=== PATIENT | male | born 1960 | race Caucasian/White ===

== ENCOUNTER 2017-01-01 13:45 | Emergency (ER) | payer OTHER ==
[2017-01-01 13:50] VITALS: BP 164/104; PULSE 97; TEMP 98.2; BMI 33.5
[2017-01-01] MEDS ORDERED: KETOROLAC TROMETHAMINE 60 MG/2 ML VIAL IM ONE (14:16)
--- NOTE | 2017-01-01 14:18 | PDOC ---
History of Present Illness - General Chief Complaint: Pain Stated Complaint: LEFT KNEE INJURY ON THE JOB Time Seen by Provider: 01/01/17 13:57 History Source: Patient Exam Limitations: No Limitations - History of Present Illness Initial Comments: 01/01/17 14:20 While on duty, works for [employer], stepped in a pot hole causing and lateral twisting movement injuring his left knee. States used ice packs, and elevated, but states has continued swelling and lateral pain to his left knee joint. No numbness or tingling to foot, no ankle injury no hip injury. Occurred: reports: yesterday Severity: reports: mild Pain Location: reports: lower extremity (left knee) Method of Injury: Yes: fall Associated Symptoms (Fall): denies symptoms Past History - Travel Traveled outside of the country in the last 30 days: No Close contact w/someone who was outside of country & ill: No - Past Medical History Allergies/Adverse Reactions: Allergies Allergy/AdvReac Type Severity Reaction Status Date / Time simvastatin Allergy Rash Verified 01/01/17 13:51 Home Medications: Ambulatory Orders Allopurinol [Zyloprim -] 100 mg PO DAILY 01/01/17 Diclofenac Sodium [Voltaren] 100 gm TP BID PRN #1 gel..gram. 01/01/17 Lisinopril/Hydrochlorothiazide [Lisinopril-Hctz 10-12.5 mg Tab] 1 each PO ASDIR 01/01/17 Sitagliptin Phos/Metformin HCl [Janumet 50-1,000 mg Tablet] 50 mg PO ASDIR 01/01 Diabetes: Yes HTN: Yes Other medical history: GOUT - Surgical History Abdominal Surgery: Yes (HERNIA) - Psycho/Social/Smoking Cessation Hx Anxiety: No Suicidal Ideation: No Smoking History: Never smoked Hx Alcohol Use: No Drug/Substance Use Hx: No Substance Use Type: None Review of Systems - Review of Systems Able to Perform ROS?: Yes Is the patient limited Trinidadian proficient: Yes Constitutional: Yes: See HPI. No: Symptoms Reported, Fever, Malaise HEENTM: No: Symptoms Reported Musculoskeletal: Yes: Symptoms Reported, See HPI, Joint Swelling, Joint Stiffness (left knee ) All Other Systems: Reviewed and Negative *Physical Exam - Vital Signs Last Vital Signs Temp Pulse Resp BP Pulse Ox 98.2 F 97 H 20 164/104 97 01/01/17 13:47 07/05/17 13:47 01/01/17 13:47 01/01/17 13:47 01/01/17 13:47 - Physical Exam General Appearance: Yes: Nourished, Appropriately Dressed, Apparent Distress, Mild Distress HEENT: positive: JANA, Normal ENT Inspection, TMs Normal, Pharynx Normal Respiratory/Chest: positive: Lungs Clear Gastrointestinal/Abdominal: positive: Normal Bowel Sounds Extremity: positive: Normal Capillary Refill, Normal Inspection, Tender ( tenderness reproduced along the lateral aspect of his left knee, primarily superior insertion site. Has no crepitus or step-offs, patella is mobile, has some mild posterior possible tenderness. Range of motion is intact but painful on severe flexion. Ambulatory without noted unsteadiness but mild limp. Neurovascular intact to foot). negative: Normal Range of Motion Integumentary: positive: Normal Color, Warm, Swelling Neurologic: positive: cost clerk II-XII NML intact, Fully Oriented, Alert, Normal Mood/ Affect, Normal Response, Motor Strength 5/5 Progress Note - Progress Note Progress Note: Left knee sprain, probable LCL ligament injury. We will obtains on knee immobilizer that is more appropriate fit, will treat with NSAIDs, and prescribed DEfenolac cream. and F/U with Dr Hayden *DC/Admit/Observation/Transfer Diagnosis at time of Disposition: Knee LCL sprain Qualifiers: Encounter type: initial encounter Laterality: left Qualified Code(s): S83.422A - Sprain of lateral collateral ligament of left knee, initial encounter - Discharge Dispostion Disposition: HOME Condition at time of disposition: Stable Admit: No - Prescriptions Prescriptions: Diclofenac Sodium [Voltaren] 100 gm TP BID PRN #1 gel..gram. PRN Reason: Pain - Referrals Referrals: Uzair Hayden MD [Staff Physician] - - Patient Instructions Printed Discharge Instructions: DI for Knee Sprain Additional Instructions: Rest, ice to area on and off for 15 minutes 4-6 times a day Avoid heavy lifting or exercise until pain and swelling is resolved or until further directed Keep area highly elevated to reduce swelling Use splints/Kareem wrap as directed Followup with orthopedist in one to 2 days if not improving, if significantly improved may wait one week for followup with orthopedist May use Voltaren cream twice a day on affected area for pain relief May use ibuprofen 2-200 mg tablets every 6 hours as needed for pain - Post Discharge Activity Work/School Note: Back to Work
[2017-01-01] MEDS ORDERED: KETOROLAC TROMETHAMINE 60 MG/2 ML VIAL ONE (14:19)
== END 2017-01-01 14:30 | disposition home or self-care (01) ==
LOC: JERFT 13:45
PROC: 3E0233Z Introduction of Anti-inflammatory into Muscle, Percutaneous Approach (ICD-10-PCS; principal; 2017-01-01)
PROC: 2W3TX1Z Immobilization of Left Foot using Splint (ICD-10-PCS; 2017-01-01)
DX: S83.422A Sprain of lateral collateral ligament of left knee, initial encounter (principal); X58.XXXA Exposure to other specified factors, initial encounter; Y93.89 Activity, other specified; Y92.410 Unspecified street and highway as the place of occurrence of the external cause; Y99.0 Civilian activity done for income or pay; E11.9 Type 2 diabetes mellitus without complications; I10 Essential (primary) hypertension; M10.9 Gout, unspecified
CPT/HCPCS: 99281-25

== ENCOUNTER 2019-03-10 16:36 | Emergency (ER) | payer OTHER ==
[2019-03-10 16:49] VITALS: BP 125/75; PULSE 90; TEMP 98.3; BMI 31.0
--- NOTE | 2019-03-10 16:53 | PDOC ---
History of Present Illness - General Stated Complaint: BUG BITE Time Seen by Provider: 03/10/19 16:45 History Source: Patient Exam Limitations: No Limitations Past History - Travel Traveled outside of the country in the last 30 days: No Close contact w/someone who was outside of country & ill: No - Past Medical History Allergies/Adverse Reactions: Allergies Allergy/AdvReac Type Severity Reaction Status Date / Time simvastatin Allergy Rash Verified 03/10/19 16:45 Home Medications: Ambulatory Orders Allopurinol [Zyloprim -] 100 mg PO DAILY 01/01/17 Diclofenac Sodium [Voltaren] 100 gm TP BID PRN #1 gel..gram. 01/01/17 Lisinopril/Hydrochlorothiazide [Lisinopril-Hctz 10-12.5 mg Tab] 1 each PO ASDIR 01/01/17 Sitagliptin Phos/Metformin HCl [Janumet 50-1,000 mg Tablet] 50 mg PO ASDIR 01/01 Cephalexin Monohydrate [Keflex -] 500 mg PO BID #14 capsule 03/10/19 Sulfamethoxazole/Trimethoprim [Bactrim Ds -] 1 tab PO BID #14 tablet 03/10/19 Diabetes: Yes HTN: Yes - Surgical History Abdominal Surgery: Yes (HERNIA) - Suicide/Smoking/Psychosocial Hx Smoking History: Never smoked Hx Alcohol Use: No Drug/Substance Use Hx: No Substance Use Type: None Review of Systems - Review of Systems Able to Perform ROS?: Yes Is the patient limited Kinyarwanda proficient: No Constitutional: No: Chills, Fever, Weakness Musculoskeletal: No: Muscle Pain, Muscle Weakness Integumentary: Yes: Erythema, Rash. No: Lesions Neurological: No: Paresthesia, Tingling, Weakness All Other Systems: Reviewed and Negative *Physical Exam - Physical Exam General Appearance: Yes: Nourished, Appropriately Dressed. No: Apparent Distress Extremity: positive: Normal Capillary Refill, Normal Range of Motion Integumentary: positive: Dry, Warm, Rash (cellulitis to the L ventral forearm approximately 5cmx4.5cm no fluctance or abscess noted) Neurologic: positive: Fully Oriented, Alert, Normal Mood/Affect, Normal Response , Motor Strength 5/5 Medical Decision Making - Medical Decision Making 03/10/19 16:49 The pt is a 58 y/o M with PMH of NIDDM, HLD, gout presents to the ER with cellulitis to his L forearm starting this morning. The patient states he got bit by a bug yesterday. When he woke up this morning he saw redness on the forearm and throughout the course of the day the rash got worse. 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 Denies fevers, chills, numbess, tingling and weakness in the affected extremity. A/P: cellulitis On exam pt with a warm patch 4.5x5cm on the ventral L forearm consistent with cellulitis Will place pt on Keflex and bactrim given diabetic and work history Area was marked with a pen Strict return precautions given at this time, should the rash go past the marked area that he should return to the ER for further evaluation Pt understands all dc instructions and all questions were answered. *DC/Admit/Observation/Transfer Diagnosis at time of Disposition: Cellulitis Qualifiers: Site of cellulitis: extremity Site of cellulitis of extremity: upper extremity Laterality: left Qualified Code(s): L03.114 - Cellulitis of left upper limb - Discharge Dispostion Disposition: HOME Condition at time of disposition: Stable Decision to Admit order: No - Referrals Referrals: Juan M Hamilton MD [Staff Physician] - - Patient Instructions Printed Discharge Instructions: DI for Cellulitis -- Adult Additional Instructions: You have cellulitis or a skin infection Take the bactrim and keflex as prescribed starting tonight for one week. Finish the entire dose even if you feel better Use warm soaks to the area Do not shave around the area. Return to the ER if the redness gets worse/extends past the marked area, if you develop fevers or pain in the arm or if you have any changes in your symptoms - Post Discharge Activity Forms/Work/School Notes: Back to Work
== END 2019-03-10 17:10 | disposition home or self-care (01) ==
LOC: JER 16:36
DX: L03.114 Cellulitis of left upper limb (principal); E78.5 Hyperlipidemia, unspecified
CPT/HCPCS: 99281-25

== ENCOUNTER 2020-10-17 04:44 | Day surgery (SDC) | payer BC ==
[2020-10-11 16:09] VITALS: BMI 34.8
[2020-10-17 12:57] VITALS: TEMP 97.8
[2020-10-17 13:07] VITALS: BP 138/94; PULSE 97
== END 2020-10-17 13:02 | disposition home or self-care (01) ==
LOC: JASU-SURG 04:44
PROVIDERS: ATTEND Internal Medicine Gastroenterology
PROC: 0DB68ZX Excision of Stomach, Via Natural or Artificial Opening Endoscopic, Diagnostic (ICD-10-PCS; principal; 2020-10-17 12:00)
DX: K29.50 Unspecified chronic gastritis without bleeding (principal); I10 Essential (primary) hypertension; E11.9 Type 2 diabetes mellitus without complications
CPT/HCPCS: 82962; 88305-TC; 88342-TC

== ENCOUNTER 2020-10-24 04:16 | Day surgery (SDC) | payer BC ==
[2020-10-23 09:43] VITALS: BMI 34.0
[2020-10-24 09:47] VITALS: TEMP 97.8
[2020-10-24 11:40] VITALS: BP 149/88; PULSE 78
== END 2020-10-24 11:40 | disposition home or self-care (01) ==
LOC: JASU-ENDO 04:16
PROVIDERS: ATTEND Internal Medicine Gastroenterology
PROC: 0DBM8ZX Excision of Descending Colon, Via Natural or Artificial Opening Endoscopic, Diagnostic (ICD-10-PCS; 2020-10-24)
PROC: 0DBM8ZX Excision of Descending Colon, Via Natural or Artificial Opening Endoscopic, Diagnostic (ICD-10-PCS; principal; 2020-10-24 10:00)
DX: Z12.11 Encounter for screening for malignant neoplasm of colon (principal); D12.4 Benign neoplasm of descending colon; K63.5 Polyp of colon; K64.8 Other hemorrhoids
CPT/HCPCS: 88305-TC

== ENCOUNTER 2020-11-20 08:06 | Emergency (ER) | payer BC ==
[2020-11-20 08:11] VITALS: BP 137/90; PULSE 100; BMI 35.2
== END 2020-11-20 08:48 | disposition home or self-care (01) ==
LOC: JER 08:06
DX: R19.7 Diarrhea, unspecified (principal)
CPT/HCPCS: 99283-25

== ENCOUNTER 2020-11-21 16:43 | Emergency (ER) | payer BC ==
[2020-11-21 16:47] VITALS: TEMP 97.9; BMI 34.1
[2020-11-21] MEDS ORDERED: ONDANSETRON 4 MG/2 ML VIAL IVPB ONE (17:26)
[2020-11-21] MEDS ORDERED: SODIUM CHLORIDE 1,000 ML IV STA (17:26)
[2020-11-21] MEDS ORDERED: ONDANSETRON 4 MG/2 ML VIAL ONE (17:37)
[2020-11-21 17:58] LABS: BASO % 0.1 % (0-2.0); EOS % 1.9 % (0-4.5); HEMATOCRIT 51.2 % (35.4-49); LYMPH % 16.2 % (8-40); MCH 26.5 pg (25.7-33.7); MCHC 33.2 g/dl (32.0-35.9); MEAN CELL VOLUME 79.9 fl (80-96); NEUT % 67.8 % (42.8-82.8); PLATELET COUNT 228 K/MM3 (134-434); WHITE BLOOD COUNT 7.1 K/mm3 (4.0-10.0)
[2020-11-21 18:17] LABS: ALBUMIN 4.1 g/dl (3.4-5.0); CALCIUM 8.5 mg/dL (8.5-10.1)
[2020-11-21 18:18] LABS: BLOOD UREA NITROGEN 12.8 mg/dL (7-18)
[2020-11-21 18:20] LABS: URINE APPEARANCE CLEAR; URINE BILIRUBIN NEGATIVE (NEGATIVE); URINE COLOR YELLOW; URINE GLUCOSE (UA) 3+ (NEGATIVE); URINE KETONE NEGATIVE (NEGATIVE); URINE LEUK ESTERASE NEGATIVE (NEGATIVE); URINE NITRITE NEGATIVE (NEGATIVE); URINE PROTEIN NEGATIVE (NEGATIVE); URINE UROBILINOGEN 0.2 mg/dL (0.2-1.0)
[2020-11-21 18:21] LABS: CREATININE 1.2 mg/dL (0.55-1.3)
[2020-11-21 18:22] LABS: BILIRUBIN,TOTAL 0.5 mg/dL (0.2-1); TOT PROT 7.2 g/dl (6.4-8.2)
[2020-11-21 20:16] VITALS: BP 147/89; PULSE 99
== END 2020-11-21 20:12 | disposition home or self-care (01) ==
LOC: JER 16:43
PROC: 3E033GC Introduction of Other Therapeutic Substance into Peripheral Vein, Percutaneous Approach (ICD-10-PCS; principal; 2020-11-21)
PROC: 3E0337Z Introduction of Electrolytic and Water Balance Substance into Peripheral Vein, Percutaneous Approach (ICD-10-PCS; 2020-11-21)
DX: K52.9 Noninfective gastroenteritis and colitis, unspecified (principal)
CPT/HCPCS: 36415; 74177-TC; 80053; 81003; 83605; 83690; 85025; 93005; 93010; 99285-25; Q9967

== ENCOUNTER 2023-10-05 21:02 | Emergency (ER) | payer OTHER ==
[2023-10-05 21:16] VITALS: BP 165/93; PULSE 94; RESP 18; TEMP 98.7; BMI 33.2
[2023-10-05] MEDS ORDERED: diazePAM 5 MG TABLET ONE (22:03)
[2023-10-05] MEDS: diazePAM 5 MG TABLET PO ONE (22:05)
== END 2023-10-05 22:08 | disposition home or self-care (01) ==
LOC: JER 21:02
DX: G56.31 Lesion of radial nerve, right upper limb (principal); R20.0 Anesthesia of skin
CPT/HCPCS: 99283-25

== ENCOUNTER 2024-07-15 16:31 | Emergency (ER) | payer BC, OTHER ==
[2024-07-15 16:49] VITALS: BMI 34.0
[2024-07-15] MEDS: ACETAMINOPHEN 500 MG TABLET (FP) PO ONE (17:37)
[2024-07-15] MEDS: IBUPROFEN 400 MG TABLET (FP) PO ONE (17:37)
[2024-07-15] MEDS ORDERED: ACETAMINOPHEN INJECTION 100 ML ONE (17:50)
[2024-07-15 17:56] LABS: BASO % 0.2 % (0-2.0); HEMATOCRIT 46.9 % (35.4-49); HEMOGLOBIN 15.7 GM/dL (11.7-16.9); LYMPH % 3.8 % (8-40); MCH 26.8 pg (25.7-33.7); MCHC 33.4 g/dl (32.0-35.9); MEAN CELL VOLUME 80.2 fl (80-96); MEAN PLT VOLUME 8.5 fl (7.5-11.1); MONO % 4.7 % (3.8-10.2); NEUT % 90.3 % (42.8-82.8); PLATELET COUNT 164 10^3/uL (134-434); RBC 5.85 M/mm3 (4.00-5.60); RDW 13.8 % (11.9-15.9); WHITE BLOOD COUNT 6.4 K/mm3 (4.0-10.0)
[2024-07-15] MEDS: SODIUM CHLORIDE 0.9% 500 ML INFUS.BAG IV ONE (18:01)
[2024-07-15] MEDS: ACETAMINOPHEN 1000 MG/100 ML BAG IVPB ONE (18:02)
[2024-07-15] MEDS ORDERED: ONDANSETRON 4 MG/2 ML VIAL ONE (18:09)
[2024-07-15 18:17] LABS: POTASSIUM 3.9 mmol/L (3.5-5.1)
[2024-07-15 18:19] LABS: ALBUMIN 4.2 g/dl (3.4-5.0); CALCIUM 9.5 mg/dL (8.5-10.1)
[2024-07-15 18:20] LABS: BLOOD UREA NITROGEN 21.9 mg/dL (7-18)
[2024-07-15 18:23] LABS: CREATININE 1.4 mg/dL (0.55-1.3)
[2024-07-15 18:24] LABS: BILIRUBIN,TOTAL 0.7 mg/dL (0.2-1); TOT PROT 7.4 g/dl (6.4-8.2)
[2024-07-15] MEDS: ONDANSETRON 4 MG/2 ML VIAL IVPUSH ONE (18:35)
[2024-07-15 18:46] LABS: VENOUS PCO2 33.3 mmHg (38-52); VENOUS PH 7.41 (7.310-7.410)
[2024-07-15] MEDS ORDERED: FAMOTIDINE 20 MG/50 ML IVPB 20 MG/50 ML MG IVPB ONE (18:48)
[2024-07-15] MEDS: FAMOTIDINE 20 MG/50 ML IVPB 20 MG/50 ML MG IVPB ONE (18:56)
[2024-07-15 19:09] VITALS: TEMP 99.7
[2024-07-15 23:29] VITALS: BP 125/68; RESP 18
[2024-07-15 23:40] VITALS: PULSE 107
== END 2024-07-15 23:55 | disposition home or self-care (01) ==
LOC: JER 16:31
PROC: 3E033GC Introduction of Other Therapeutic Substance into Peripheral Vein, Percutaneous Approach (ICD-10-PCS; principal; 2024-07-15)
PROC: 3E033NZ Introduction of Analgesics, Hypnotics, Sedatives into Peripheral Vein, Percutaneous Approach (ICD-10-PCS; 2024-07-15)
PROC: 3E033GC Introduction of Other Therapeutic Substance into Peripheral Vein, Percutaneous Approach (ICD-10-PCS; 2024-07-15)
DX: R11.2 Nausea with vomiting, unspecified (principal); R00.0 Tachycardia, unspecified; K59.00 Constipation, unspecified; R10.84 Generalized abdominal pain; R50.9 Fever, unspecified; Z20.822 Contact with and (suspected) exposure to COVID-19
CPT/HCPCS: 0241U-QW; 36415; 71045-TC-FY; 74177-TC; 80053; 82010; 82803; 82962; 83605; 83690; 85025; 87040; 93005; 93010; 99285-25; J0131; Q9967